=== PATIENT | female | born 1970 | race Caucasian/White ===

== ENCOUNTER 2018-03-22 13:09 | Outpatient (REF) | payer MEDICAID, SELFPAY ==
[2018-03-22 20:25] LABS: Cholesterol 176 mg/dL (50-200); HDL Cholesterol 50 mg/dL (40-60); LDL CHOLESTEROL 95 mg/dL (<100); Triglyceride 295 mg/dL (30-150)
== END 2018-03-22 13:29 ==
LOC: NCHCN 13:09
PROVIDERS: Visit Provider Registered Nurse
DX: Z13.220 Encounter for screening for lipoid disorders (principal); Z00.00 Encounter for general adult medical examination without abnormal findings
CPT/HCPCS: 80061; 83721

== ENCOUNTER 2022-02-05 17:41 | Outpatient (REF) | payer MEDICAID, SELFPAY ==
[2022-02-05 15:22] LABS: HCT 44.3 % (36.0-46.0); HGB 14.4 g/dL (11.2-15.7); MCH 28.6 pg (27.0-33.0); MCHC 32.5 % (32.0-36.0); MCV 88 fL (80-95); MPV 9.8 fL (8.0-11.0); Platelet Count 452 10^3/uL (130-400); RBC 5.04 10^6/uL (3.93-5.22); RDW 13.3 % (11.7-14.6); RDW-SD 42.9 fL; WBC 7.19 10^3/uL (4.4-10.8)
[2022-02-05 16:27] LABS: ALT 44 U/L (14-59); AST 12 U/L (15-37); Albumin 3.7 g/dL (3.4-5.0); Alkaline Phosphatase 119 U/L (46-116); Anion Gap 10.8 mmol/L (3-11); BUN 18 mg/dL (7-18); Bilirubin, Total 0.3 mg/dL (0.2-1.0); CO2 27.2 mmol/L (21.0-32.0); CREATININE 0.8 mg/dL (0.55-1.02); Calcium 9.2 mg/dL (8.5-10.1); Calculated LDL 139 mg/dL (<100); Chloride 104 mmol/L (98-107); Cholesterol 244 mg/dL (<200); Estimated GFR 89.15 (mL/min/1.73m2); Glucose 88 mg/dL (74-106); HDL Cholesterol 81 mg/dL (40-60); Potassium 4.5 mmol/L (3.5-5.1); Sodium 142 mmol/L (136-145); Total Protein 7.4 g/dL (6.4-8.2); Triglyceride 121 mg/dL (<150)
== END 2022-02-05 17:42 | disposition home or self-care (01) ==
LOC: NCHCN 17:41
PROVIDERS: Visit Provider Registered Nurse
DX: Z00.00 Encounter for general adult medical examination without abnormal findings (principal); R03.0 Elevated blood-pressure reading, without diagnosis of hypertension
CPT/HCPCS: 80053; 80061; 85027; 84443

== ENCOUNTER 2023-01-13 12:38 | Outpatient (REF) | payer MEDICAID, SELFPAY ==
[2023-01-13 17:07] LABS: Abs Immature Grans 0.02 10^3/uL (0.0-0.06); Absolute Basophil Count 0.03 10^3/uL (0.0-0.2); Absolute Eosinophil Count 0.08 10^3/uL (0.0-0.7); Absolute Lymphocyte Count 3.05 10^3/uL (1.2-3.4); Absolute Monocyte Count 0.76 10^3/uL (0.1-0.8); Absolute Neutrophil Count 2.46 10^3/uL (1.2-6.7); Basophils % 0.5; Eosinophils % 1.3; HCT 43.8 % (36.0-46.0); HGB 13.7 g/dL (11.2-15.7); Immature Grans % 0.3; Lymphocytes % 47.7; MCH 28.2 pg (27.0-33.0); MCHC 31.3 % (32.0-36.0); MCV 90 fL (80-95); MPV 9.9 fL (8.0-11.0); Monocytes % 11.9; Neutrophils % 38.3; Platelet Count 410 10^3/uL (130-400); RBC 4.86 10^6/uL (3.93-5.22); RDW-SD 42.8 fL
[2023-01-13 17:55] LABS: ALT 31 U/L (14-59); AST 9 U/L (15-37); Albumin 3.9 g/dL (3.4-5.0); Alkaline Phosphatase 102 U/L (46-116); Anion Gap 7.7 mmol/L (3-11); BUN 13 mg/dL (7-18); Bilirubin, Total 0.4 mg/dL (0.2-1.0); CO2 26.3 mmol/L (21.0-32.0); CREATININE 0.6 mg/dL (0.55-1.02); Calcium 9.1 mg/dL (8.5-10.1); Chloride 104 mmol/L (98-107); Estimated GFR 107.93 (mL/min/1.73m2); Glucose 92 mg/dL (74-106); Potassium 4.2 mmol/L (3.5-5.1); Sodium 138 mmol/L (136-145); TSH 0.79 uIU/mL (0.36-3.74); Total Protein 7.3 g/dL (6.4-8.2)
== END 2023-01-13 12:39 | disposition home or self-care (01) ==
LOC: NCHCN 12:38
PROVIDERS: Visit Provider Family Medicine
DX: R10.9 Unspecified abdominal pain (principal)
CPT/HCPCS: 80053; 84443; 85025; 87086